=== PATIENT | male | born 1945 | race Caucasian/White ===

== ENCOUNTER 2019-04-22 07:45 | Day surgery (SDC) | payer OTHER ==
[~2019-04-22] VITALS: Ht 170.2 cm; Wt 103.9 kg
[~2019-04-22 07:45] MED LIST: ADVAIR 250-501 EACH INH; ALLOPURINOL 30300 M1 PO; ELIQUIS5 MG PO; FISH OIL 1,001000 M3 PO; FLONASE ALLERG9.9 ML NASAL; ISOSORBIDE DINI30 MG PO; LOSARTAN POTAS100 MG PO; NITROSTAT0.4 M1 SUBQ; NORVASC5 MG PO; PROAIR HFA8.5 GM INH; ROSUVASTATIN CA10 MG PO; SORINE 80 MG TA80 MG PO; SPIRIVA RESPIMAT4 GM INH; TAMSULOSIN HCL0.4 MG PO; UBIQUINOL100 MG PO; ZETIA10 MG PO
[2019-04-22 08:46] VITALS: BP 125/50
--- NOTE | 2019-04-26 06:14 | O ---
[facility] [place] [address] OPERATIVE REPORT Name: OWEN LEE Room #: DEP [facility].#: [id number] Admission: 04/22/19 Attend Phys: Nicolas Adames MD Discharge: 04/22/19 Date of : 47 Report #: [id number] THIS REPORT FOR: //name// CC: Nataliia Adames DATE OF SERVICE: 04/22/2019 SURGEON: Nicolas Adames MD MANAGER UTILITIES: None. PREOPERATIVE DIAGNOSIS: Bilateral upper lid dermatochalasia with superior visual field defect. POSTOPERATIVE DIAGNOSIS: Bilateral upper lid dermatochalasia with superior visual field defect. OPERATION PERFORMED: Bilateral upper lid functional blepharoplasty. ANESTHESIA: Local with IV sedation. COMPLICATIONS: None. INDICATIONS FOR SURGERY: This patient has acquired upper lid dermatochalasia with superior visual field loss both eyes because of excessive upper lid tissues to include skin and fat. Visual field testing demonstrates dense superior visual defects. Retesting with the upper lid elevated shows an improvement in visual field loss of over 30% and in excess of 12 degrees. The current procedures are undertaken in order to improve the patient's visual function. Informed consent was obtained to include but not limited to the loss of vision, bleeding, infection, scarring, failure to improve the problem and need for further surgery. DESCRIPTION OF OPERATION: The patient was taken to the operating room, where 2% Xylocaine with epinephrine mixed with equal parts of 0.75% Marcaine with Wydase was administered transcutaneously to each upper lid. The patient was then prepped and draped in the usual sterile fashion and a skin-marking pen was then utilized to outline an upper lid crease that was symmetrical on each side. Graefe forceps were then used to quantitate the redundant upper lid skin and it was similarly outlined. The incisions were then made with Connie scissors and a skin-muscle flap removed from each side with high-temp cautery. Hemostasis was achieved with the monopolar cautery as it was throughout the case. The [address] [address] OPERATIVE REPORT Name: OWEN LEE Room #: DEP [facility] M..#: [id number] Admission: 04/22/19 Attend Phys: Nicolas Adames MD Discharge: 04/22/19 Date of : 47 Report #: [id number] orbital septum was then identified and the central and medial fat pads were inspected. The redundant soft tissue was then sculpted with the monopolar cautery. The upper lid crease was then reformed with tightening of the pretarsal orbicularis muscle. The upper lid crease was then further reformed with multiple interrupted 6-0 chromic sutures. The skin was then closed with a running 6-0 plain gut suture. The wound was then cleaned and dressed with ophthalmic antibiotic ointment and a nonstick dressing. The patient was transported to the recovery area, where cold compresses were applied, having tolerated the procedure well with no anesthetic or operative complications being noted. <ELECTRONICALLY SIGNED> By: Nicolas Adames MD 04/26/19 0614 1033 1043 Nicolas Adames MD /nt
== END 2019-04-22 11:15 | disposition home or self-care (01) ==
LOC: OR 07:45 → TBA 07:48 → OR 10:41
DX: H02.831 Dermatochalasis of right upper eyelid (principal); H02.834 Dermatochalasis of left upper eyelid; H53.462 Homonymous bilateral field defects, left side; H53.461 Homonymous bilateral field defects, right side; I10 Essential (primary) hypertension; E11.9 Type 2 diabetes mellitus without complications; E78.5 Hyperlipidemia, unspecified; J43.9 Emphysema, unspecified; M10.9 Gout, unspecified; G47.30 Sleep apnea, unspecified; Z98.890 Other specified postprocedural states; Z85.828 Personal history of other malignant neoplasm of skin; Z87.891 Personal history of nicotine dependence; Z88.8 Allergy status to other drugs, medicaments and biological substances; Z95.1 Presence of aortocoronary bypass graft; Z95.0 Presence of cardiac pacemaker; Z98.41 Cataract extraction status, right eye; Z98.42 Cataract extraction status, left eye; Z79.899 Other long term (current) drug therapy
CPT/HCPCS: 50010; 50101; 50386; 50398; 51636; 56531; 62110; 62850; 70005

== ENCOUNTER → 2020-01-07 | Outpatient (CLI) | payer OTHER ==
[~2020-01-07] MED LIST changes: +TORSEMIDE10 MG PO; +VITAMIN C500 M2 PO
== END ==
LOC: LAB 13:10
PROVIDERS: ATTEND Specialist
DX: Z01.812 Encounter for preprocedural laboratory examination (principal); Z20.828 Contact with and (suspected) exposure to other viral communicable diseases

== ENCOUNTER → 2020-01-12 | Outpatient (CLI) | payer OTHER ==
[~2020-01-12] VITALS: Ht 170.2 cm; Wt 125.7 kg
--- NOTE | 2020-01-13 12:53 | P ---
[facility] [place] [address] PROCEDURE REPORT Name: OWEN LEE Room #: REG [facility]#: [id number] Admission: 01/12/20 Attend Phys: Garry Guzman Discharge: Date of : 47 Report #: [id number] THIS REPORT FOR: cc: Justino Berumen MD, Bernard O. MD McElhinney, Christian C. MD ~ CC: Justino Azar DATE OF SERVICE: 01/12/2020 PROCEDURES PERFORMED: Colonoscopy with polypectomies and tattoo. HISTORY OF PRESENT ILLNESS: The patient is a 74-year-old male who was seen by myself in the office on 10/19/2019 with a change in bowel habits, intermittent fecal and urinary incontinence, loose stools. Last colonoscopy reportedly 15 years ago. No family history of colon cancer. Plan is for colonoscopy. DESCRIPTION OF PROCEDURE: The risks and benefits of the procedure were explained to the patient, those risks including but not limited to bleeding, perforation and the risk of sedation. He understood these risks and gave informed consent. Sedation was given using propofol per anesthesia. Next, a digital rectal exam was initially performed, which was normal. Next, using a standard Olympus colonoscope, the scope was placed in the patient's anus and advanced under direct vision to the cecum. The overall prep was excellent. In the cecum, there was an adenomatous type polyp that involved the appendiceal orifice. It extended into the appendiceal orifice; therefore, unable to be removed endoscopically. Several biopsies were obtained. The polyp was approximately 1 to 1.5 cm in size. The remaining cecum was normal. The ileocecal valve was normal. In the ascending colon, there were a total of 3 polyps ranging from 5-8 mm in size, all removed by snare cautery. In the transverse colon near the hepatic flexure, a large broad-based pedunculated polyp was noted. This was approximately 3-3.5 cm in size. Unfortunately, the base of the polyp was over a broad-based fold. Due to the size and the fact the base was large, I did not feel as though this could be removed endoscopically. Therefore, I proceeded with multiple biopsies and then tattooed both proximal and distal edge of the large polyp. In the descending colon, an 8 mm sessile polyp was noted and removed by snare cautery. In the sigmoid colon, a 5 mm sessile polyp also removed by snare cautery. A few small diverticula were noted in the sigmoid colon. No evidence of inflammation. Random biopsies were obtained today to rule out the possibility of microscopic colitis. The rectal mucosa was normal. On retroflexion, small nonbleeding internal hemorrhoids were noted. The scope was then withdrawn and the procedure terminated. The patient tolerated the procedure well. [address] [address] PROCEDURE REPORT Name: ROSAOWEN Johann Room #: REG [facility]#: [id number] Admission: 01/12/20 Attend Phys: Garry Guzman Discharge: Date of : 47 Report #: [id number] IMPRESSION: 1. Multiple colonic polyps as described above. 2. Polyp involving the appendiceal orifice will need to be removed surgically as well as a large polyp noted at the hepatic flexure area. RECOMMENDATIONS: We will await biopsies and consult Surgery in the near future. Thank you for allowing me to participate in his care. <ELECTRONICALLY SIGNED> By: Garry Azar MD 01/13/20 1253 1252 1417 Garry Azar MD /nt
--- NOTE | 2020-01-14 17:07 | PATH ---
[facility] [place] [address] PATHOLOGY RPT PROCEDURE Name: CHACE LEE Room #: REG [facility].#: [id number] Admission: 01/12/20 Date of : 47 Discharge: Report #: [id number] Path Case #: [id number] [facility] Accession Number: [id number] . 01 Material submitted: . PART A: colon - APPENDICEAL ORIFICE POLYP PART B: colon - ASCENDING COLON POLYP X3. Modifiers: ascending PART C: colon - TRANSVERSE COLON POLYP, NEAR HEPATIC FLEXURE. Modifiers: transverse PART D: colon - RANDOM COLON BIOPSY R/O MICROSCOPIC COLITIS PART E: colon - DESCENDING COLON POLYP. Modifiers: descending PART F: colon - POLYP AT SIGMOID COLON. Modifiers: sigmoid . 01 Clinical history: . SCREENING, DIARRHEA . 02 Diagnosis: A. Polyp, appendiceal orifice, endoscopic biopsy: - Superficial fragments of a tubulovillous adenoma. - No definite high-grade dysplasia identified. . B. Polyp x3, ascending colon, endoscopic biopsy: - Tubular adenoma identified in all fragments. - Negative for high-grade dysplasia. . C. Polyp, transverse colon near hepatic flexure, endoscopic biopsy: - Tubular adenoma. - Negative for high-grade dysplasia. . D. Large intestine mucosa, random colon to R/O microscopic colitis, endoscopic biopsy: - Nonspecific reactive changes. - Negative for active colitis. - Negative for microscopic colitis. - Negative for dysplasia or malignancy. . E. Polyp, descending colon, endoscopic biopsy: - Two fragments showing a tubular adenoma and one fragment showing superficially sampled tubulovillous adenoma. - No definite high-grade dysplasia identified. . F. Polyp, at sigmoid colon, endoscopic biopsy: - Inflamed hyperplastic polyp. - Negative for dysplasia. (IUV:ria; 01/14/2020) QMS 01/14/2020 1306 Local . [address] [address] PATHOLOGY RPT PROCEDURE Name: LEECHACE Room #: REG [facility]#: [id number] Admission: 01/12/20 Date of : 47 Discharge: Report #: [id number] Path Case #: [id number] Electronically signed: . Maria Elena Nicole MD, Pathologist NPI- [id number] . 01 Gross description: . A. The specimen is received in formalin, labeled "Chace Lee, appendiceal orifice polyp". Received are three segments of pale sow soft tissue ranging in size from 0.2 to 0.4 cm in maximum dimensions. The specimen is submitted entirely in cassette A1. . B. The specimen is received in formalin, labeled "Chace Lee, ascending colon polyp". Received are multiple segments of pale sow soft tissue ranging in size from 0.1 to 0.7 cm in maximum dimensions. The specimen is submitted entirely in cassette B1. . C. The specimen is received in formalin, labeled "Chace Lee, transverse colon polyp". Received are multiple segments of pale sow soft tissue ranging in size from 0.1 to 0.3 cm in maximum dimensions. The specimen is submitted entirely in cassette C1. . D. The specimen is received in formalin, labeled "Chace Lee, random colon biopsy". Received are three segments of pale sow soft tissue ranging in size from 0.3 to 0.6 cm in maximum dimensions. The specimen is submitted entirely in cassette D1. . E. The specimen is received in formalin, labeled "Chace Lee, descending colon polyp". Received are three segments of pale sow soft tissue ranging in size from 0.3 to 0.4 cm in maximum dimensions. The specimen is submitted entirely in cassette E1. . F. The specimen is received in formalin, labeled "Chace Lee, polyp at sigmoid colon". Received is a segment of pale sow soft tissue measuring 0.3 cm in maximum dimensions. The specimen is submitted entirely in cassette F1. (CAA; 01/13/2020) QAC/QAC 01/13/2020 1049 Local . 02 Pathologist provided ICD-10: D12.0, D12.2, D12.3, K63.9, D12.4, K63.5 . 02 CPT . 561116, 447456, 709904, 494543, 570406, 938411 Specimen Comment: A courtesy copy of this report has been sent to [phone], [phone] Specimen Comment: [phone] Specimen Comment: Report sent to / DR HENDERSON Performed at: [address] [address] PATHOLOGY RPT PROCEDURE Name: CHACE LEE Room #: REG [facility].#: [id number] Admission: 01/12/20 Date of : 47 Discharge: Report #: [id number] Path Case #: [id number] [address] [facility] [address], [place], [place] [id number] MD Yvan Hope MD Phone: [phone] Performed at: [address] [id number] MD Maria Elena Nicole MD Phone: [phone]
== END | disposition home or self-care (01) ==
LOC: GI 12-01 10:36
PROVIDERS: ATTEND Specialist
DX: R19.4 Change in bowel habit (principal); R19.7 Diarrhea, unspecified; D12.0 Benign neoplasm of cecum; D12.3 Benign neoplasm of transverse colon; D12.4 Benign neoplasm of descending colon; D12.2 Benign neoplasm of ascending colon; K51.40 Inflammatory polyps of colon without complications; I10 Essential (primary) hypertension; I48.91 Unspecified atrial fibrillation; E78.5 Hyperlipidemia, unspecified; J43.9 Emphysema, unspecified; G47.30 Sleep apnea, unspecified; M10.9 Gout, unspecified; E11.9 Type 2 diabetes mellitus without complications; I25.2 Old myocardial infarction; Z98.890 Other specified postprocedural states; Z79.899 Other long term (current) drug therapy; Z79.01 Long term (current) use of anticoagulants; Z95.1 Presence of aortocoronary bypass graft; Z87.891 Personal history of nicotine dependence; Z98.41 Cataract extraction status, right eye; Z98.42 Cataract extraction status, left eye; Z95.0 Presence of cardiac pacemaker; Z88.8 Allergy status to other drugs, medicaments and biological substances
CPT/HCPCS: 62110; 62900

== ENCOUNTER → 2021-01-19 | Outpatient (CLI) | payer OTHER ==
[~2021-01-19] VITALS: Ht 170.2 cm; Wt 106.6 kg
[~2021-01-19] MED LIST changes: +AZITHROMYCIN500 MG PO; +CRESTOR5 MG PO; +DOXYCYCLINE 10100 MG PO; +IRON325 PO; +MAGNESIUM OXID500 MG PO; +MUCINEX600 MG PO; +OXYBUTYNIN 5 MG5 M2 PO; +PREDNISONE 10 M10 MG PO; +VITAMIN B-121000 MC2 PO; +VITAMIN D3125 MC1 PO
--- NOTE | ~2021-01-19 | P ---
[facility] [place] [address] PROCEDURE REPORT Name: OWEN LEE Room #: REG [facility]#: [id number] Admission: 01/19/21 Attend Phys: Garry Guzman Discharge: Date of : 47 Report #: [id number] THIS REPORT FOR: cc: Jony Nickerson MD,Garry Alexander MD, MD ~ cc: Arabella Sorenson MD PhD, Jony Nickerson MD DATE OF SERVICE: 01/19/2021 PROCEDURE PERFORMED: Colonoscopy. HISTORY OF PRESENT ILLNESS: The patient is a 75-year-old male with a history of large polyps noted by myself on 01/12/2020. They were unable to be removed. One polyp involving the appendiceal orifice as well as a large polyp noted at the hepatic flexure. Because of this, he was seen by Dr. Arabella Sorenson, Colorectal Surgery and underwent a robotic right hemicolectomy and ileotransverse [id number] functional end-to-end anastomosis. This was performed on 05/09/2020. 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 The proximal, distal, and mesenteric resection margins are negative for dysplasia or carcinoma. Lymph nodes were negative for metastatic carcinoma in 14 lymph nodes. The patient has been doing well overall. He did have some right upper quadrant abdominal pain earlier this year. A CT scan of the abdomen and pelvis on 08/12/2020 showed question of minimal fibrosis or inflammation in the right upper quadrant adjacent to the ileocolonic anastomosis. He denies any further abdominal pain. DESCRIPTION OF PROCEDURE: The risks and benefits of the procedure were explained to the patient, those risks including but not limited to bleeding, perforation and the risk of sedation. He understood these risks and gave informed consent. Sedation was given using propofol per anesthesia. Next, a digital rectal exam was initially performed, which was normal. Next, using a standard Olympus colonoscope, the scope was placed in the patient's anus and advanced under direct vision into the right colon, at which point, the surgical anastomosis was noted. This was well healed and widely patent. The scope was advanced into the terminal ileum, which was normal. The scope was then brought back up into the patient's colon. The remaining transverse and descending colon were normal. A few small scattered diverticula were noted in the sigmoid colon. No evidence of inflammation, otherwise normal. The rectal mucosa was normal. On retroflexion, small nonbleeding internal hemorrhoids were noted. The scope was then withdrawn and the procedure terminated. The patient tolerated the procedure well. IMPRESSION: [facility] [address] [place] [address] PROCEDURE REPORT Name: ROSAANGELOWEN DEBBIE [id number] Admission: 01/19/21 Attend Phys: Garry Guzman Discharge: Date of : 47 Report #: [id number] 1. Surgical anastomosis, right colon noted well healed. 2. Sigmoid diverticulosis, mild. 3. Small internal hemorrhoids. 4. Otherwise, normal colonoscopy. RECOMMENDATIONS: Repeat colonoscopy in 2 years. Thank you for allowing me to participate in his care. By: 0814 1511 Garry Azar MD /nt
== END | disposition home or self-care (01) ==
LOC: GI 07:34
PROVIDERS: ATTEND Specialist
DX: Z09 Encounter for follow-up examination after completed treatment for conditions other than malignant neoplasm (principal); Z86.010 Personal history of colon polyps; Z80.0 Family history of malignant neoplasm of digestive organs; K57.30 Diverticulosis of large intestine without perforation or abscess without bleeding; K64.8 Other hemorrhoids; I10 Essential (primary) hypertension; E78.5 Hyperlipidemia, unspecified; I48.91 Unspecified atrial fibrillation; J43.9 Emphysema, unspecified; G47.30 Sleep apnea, unspecified; Z98.890 Other specified postprocedural states; Z79.899 Other long term (current) drug therapy; Z98.0 Intestinal bypass and anastomosis status; Z85.828 Personal history of other malignant neoplasm of skin; Z87.891 Personal history of nicotine dependence; Z95.0 Presence of cardiac pacemaker
CPT/HCPCS: 62110; 62900